=== PATIENT | male | born 1955 | race Caucasian/White ===

== ENCOUNTER 2018-01-07 15:46 | Outpatient (RCR) | payer OTHER ==
[~2018-01-07 15:46] MED LIST: DOXYCYCLINE 10100 MG PO; FLEXERIL 1010 MG/TAB PO; LORTAB 5/500 501 TAB PO; NAPROSYN500 MG PO; NO HOME MEDICATIONS; PERCOCET 325 MG1 TA2 PO; PHENERGAN W/CO120 M1 PO; PREDNISONE 20MG20 MG PO; PREVACID 30MG30 MG PO
== END 2018-03-29 10:56 | disposition home or self-care (01) ==
LOC: MKS.ESL.PT 15:46
DX: G62.9 Polyneuropathy, unspecified (principal)

== ENCOUNTER 2018-01-07 15:52 | Outpatient (RCR) | payer OTHER | END 2018-03-29 10:56 | disposition home or self-care (01) | LOC: MKS.ESL.PT 15:52 | DX: E11.42 Type 2 diabetes mellitus with diabetic polyneuropathy (principal); Z79.82 Long term (current) use of aspirin; Z79.899 Other long term (current) drug therapy; Z79.84 Long term (current) use of oral hypoglycemic drugs; F17.210 Nicotine dependence, cigarettes, uncomplicated ==

== ENCOUNTER 2018-10-09 13:39 | Day surgery (SDC) | payer OTHER ==
[~2018-10-09] VITALS: Ht 185.4 cm; Wt 120.5 kg
[2018-10-09] MEDS ORDERED: FORTAMET500 M1 PO (14:43)
[2018-10-09 14:51] LABS: BASO # 0.1 (0.0-0.2); BASO % 0.6 % (0.0-2.0); EOS # 0.2 (0.0-0.7); EOS % 1.8 % (0-4.0); GRAN # 7.7 (1.4-6.5); GRAN % 72.1 % (42.2-75.2); HEMATOCRIT 43.6 % (42.0-52.0); HEMOGLOBIN 14.7 g/dl (13.5-18.0); LYMPH % 18.6 % (20.0-51.0); MEAN CELL VOLUME 86 fl (80.0-100.0); MEAN CORPUSCULAR HEMOGLOBIN 29 pg (27.0-31.0); MEAN CORPUSCULAR HGB CONC 34 g/dl (33.0-37.0); MEAN PLATELET VOLUME 9.9 fl (7.4-10.4); MONO # 0.7 (0.1-0.6); MONO % 6.3 % (1.7-9.3); PLATELET COUNT 214 K/mm3 (130-400); RED BLOOD COUNT 5.09 M/mm3 (4.20-5.60); REDCELL DISTRIBUTION WIDTH-CV 13.5 % (11.5-14.5)
[2018-10-09 14:59] LABS: CALCIUM 9.6 mg/dL (8.4-10.2); CREATININE, serum 0.7 (0.66-1.25); POTASSIUM 3.9 mmol/L (3.4-5.0)
[2018-10-09] MEDS ORDERED: AMARYL4 MG PO (17:58)
[2018-10-09] MEDS ORDERED: PROSCAR 5MG5 MG PO (17:58)
[2018-10-09 19:26] VITALS: TEMP 98.5
[2018-10-09 20:02] VITALS: BP 131/86; PULSE 90
== END 2018-10-09 23:30 | disposition home or self-care (01) ==
LOC: COL.ER 13:39 → SDCO 18:08 → SURG 19:55 → SDCO 23:30
PROVIDERS: Emergency Medicine
DX: N49.2 Inflammatory disorders of scrotum (principal); E11.9 Type 2 diabetes mellitus without complications; Z79.84 Long term (current) use of oral hypoglycemic drugs; K21.9 Gastro-esophageal reflux disease without esophagitis; C61 Malignant neoplasm of prostate; E78.5 Hyperlipidemia, unspecified; G47.33 Obstructive sleep apnea (adult) (pediatric); F17.210 Nicotine dependence, cigarettes, uncomplicated
CPT/HCPCS: OP; A4216; J0690; J0696; J1100; J1885; J2405; J2704; J3010; Q9967